=== PATIENT | male | born 1950 | race Caucasian/White ===

== ENCOUNTER 2016-06-30 03:02 | Emergency (ER) | payer BC, OTHER ==
[~2016-06-30] VITALS: Ht 167.6 cm; Wt 89.0 kg
[2016-06-30] MEDS ORDERED: AMOX500C2 PO (03:10)
[2016-06-30] MEDS ORDERED: IBUP-1547 PO (03:10)
[2016-06-30] MEDS ORDERED: LISI-662 PO (03:10)
[2016-06-30] MEDS ORDERED: MethylPREDNISolone SOD SUCC 125 MG/2 ML VIAL IM ONE (04:45)
[2016-06-30] MEDS ORDERED: DiphenhydrAMINE HCL 50 MG/ML VIAL IM ONE (04:45)
[2016-06-30 05:15] VITALS: BP 160/92
== END 2016-06-30 05:17 | disposition home or self-care (01) ==
LOC: EMS 03:04
DX: T78.2XXA Anaphylactic shock, unspecified, initial encounter (principal); I10 Essential (primary) hypertension; Y92.9 Unspecified place or not applicable
CPT/HCPCS: 96372; 99284; J1200; J2930